=== PATIENT | male | born 1995 | race African-American/Black ===

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

== ENCOUNTER 2017-05-25 16:29 | Emergency (ER) | payer SELFPAY ==
[~2017-05-25] VITALS: Ht 167.6 cm; Wt 99.8 kg
[~2017-05-25 16:29] MED LIST changes: -HYDR-2666 PO; +HYDR-2758 PO; +OXYC-323 PO
[2017-05-25 18:21] LABS: BASO % 1 % (0-3); EOS % 2 % (0-3); HEMATOCRIT 43.2 % (39.0-53.0); HEMOGLOBIN 14.5 g/dL (13.0-17.5); LYMPH # 1.8 x10^3/uL (1.0-4.8); LYMPH % 32 % (24-48); MEAN CORPUSCULAR HEMOGLOBIN 31 pg (25-35); MEAN CORPUSCULAR HGB CONC 34 g/dL (31-37); MEAN CORPUSCULAR VOLUME 91 fL (79-100); MONO % 8 % (0-9); NEUT % 57 % (31-73); PLATELET COUNT 171 x10^3/uL (140-400); RED BLOOD COUNT 4.73 x10^6/uL (4.30-5.70); RED CELL DISTRIBUTION WIDTH 13.4 % (11.5-14.5); WHITE BLOOD COUNT 5.6 x10^3/uL (4.0-11.0)
[2017-05-25 18:35] LABS: BARBITURATES NEG (NEG); BENZODIAZEPINES NEG (NEG); CANNABINOIDS POS (NEG); COCAINE NEG (NEG); METHADONE NEG (NEG); OPIATES NEG (NEG); PHENCYCLIDINE NEG (NEG)
--- NOTE | 2017-05-25 18:59 | ED.ADGEN ---
Past Medical History Past Medical History: STD, Other Additional Past Medical Histor: ADHD Past Surgical History: No Surgical History Alcohol Use: Occasionally Drug Use: None Adult General Chief Complaint Chief Complaint: CHEST WALL PAIN HPI HPI Patient is a 22 year old man, with no significant past medical history, who presents to the emergency department with a complaint of chest pain and lower extremity swelling. Patient states that he experiencing left-sided chest pain today, he states he was not experiencing any any shortness of breath and describes the pain as sharp and stabbing, states that it was occurring for about an hour or so, and he also noted swelling in his lower stomach. He states he doesn't episodes where he "breathe hard", has not previously been evaluated for this issue, and cannot clarify if they becoming worse recently. Did not have an episode of difficulty breathing today. Denies any nausea or vomiting, lightheadedness or dizziness, any focal weakness, numbness, tingling. States the swelling in his extremities C noted over the past few days to weeks, denies any recent travel or surgery, any rashes, any urinary complaints, abdominal pain , any injuries, he states he does have a family history of heart disease in his father, states his father was diagnosed with "a really enlarged heart", and his 20s. He does not have additional history as his father lives in another state. Review of Systems Review of Systems Constitutional: Denies fever or chills. [] Eyes: Denies change in visual acuity. [] HENT: Denies nasal congestion or sore throat. [] Respiratory: Denies cough or shortness of breath. [] Cardiovascular: Left-sided chest pain, with edema in lower extremities. Bilateral. GI: Denies abdominal pain, nausea, vomiting, bloody stools or diarrhea. [] : Denies dysuria. [] Musculoskeletal: Denies back pain or joint pain. [] Integument: Denies rash. [] Neurologic: Denies headache, focal weakness or sensory changes. [] Endocrine: Denies polyuria or polydipsia. [] Lymphatic: Denies swollen glands. [] Psychiatric: Denies depression or anxiety. [] Allergies Allergies Allergies Coded Allergies Type Severity Reaction Last Updated Verified No Known Drug Allergies 11/02/14 No Physical Exam Physical Exam Constitutional: Well developed, well nourished, no acute distress, non-toxic appearance. [] HENT: Normocephalic, atraumatic, bilateral external ears normal, oropharynx moist, no oral exudates, nose normal. [] Eyes: PERRLA, EOMI, conjunctiva normal, no discharge. [] Neck: Normal range of motion, no tenderness, supple, no stridor. [] Cardiovascular:Heart rate regular rhythm, no murmur, S1, S2, no rubs or gallops. No chest or crepitus or tenderness. Unable to reproduce symptoms with palpation.[] Lungs & Thorax: Bilateral breath sounds clear to auscultation, no wheezing, rhonchi, rales. No chest wall crepitus. [] Abdomen: Bowel sounds normal, soft, no tenderness, no masses, no pulsatile masses. [] Skin: Warm, dry, no erythema, no rash. [] Back: No tenderness, no CVA tenderness. [] Extremities: No tenderness, no cyanosis, no clubbing, ROM intact, no edema. Negative Homans sign. [] Neurologic: Alert and oriented X 3, normal motor function, normal sensory function, no focal deficits noted. [] Psychologic: Affect normal, judgement normal, mood normal. [] Current Patient Data Vital Signs Vital Signs Date Time Temp Pulse Resp B/P (MAP) Pulse Ox O2 Delivery O2 Flow Rate FiO2 05/25/17 20:30 74 27 142/83 (102) 98 Room Air 05/25/17 17:20 98.1 98.1 Lab Values Laboratory Tests Test 05/25/17 18:13 05/25/17 18:19 White Blood Count 5.6 x10^3/uL (4.0-11.0) Red Blood Count 4.73 x10^6/uL (4.30-5.70) Hemoglobin 14.5 g/dL (13.0-17.5) Hematocrit 43.2 % (39.0-53.0) Mean Corpuscular Volume 91 fL (79-100) Mean Corpuscular Hemoglobin 31 pg (25-35) Mean Corpuscular Hemoglobin Concent 34 g/dL (31-37) Red Cell Distribution Width 13.4 % (11.5-14.5) Platelet Count 171 x10^3/uL (140-400) Neutrophils (%) (Auto) 57 % (31-73) Lymphocytes (%) (Auto) 32 % (24-48) Monocytes (%) (Auto) 8 % (0-9) Eosinophils (%) (Auto) 2 % (0-3) Basophils (%) (Auto) 1 % (0-3) Neutrophils # (Auto) 3.2 x10^3uL (1.8-7.7) Lymphocytes # (Auto) 1.8 x10^3/uL (1.0-4.8) Monocytes # (Auto) 0.5 x10^3/uL (0.0-1.1) Eosinophils # (Auto) 0.1 x10^3/uL (0.0-0.7) Basophils # (Auto) 0.0 x10^3/uL (0.0-0.2) D-Dimer (Sena) 0.30 ug/mlFEU (0.00-0.50) Sodium Level 142 mmol/L (136-145) Potassium Level 3.6 mmol/L (3.5-5.1) Chloride Level 105 mmol/L (98-107) Carbon Dioxide Level 28 mmol/L (21-32) Anion Gap 9 (6-14) Blood Urea Nitrogen 14 mg/dL (8-26) Creatinine 1.0 mg/dL (0.7-1.3) Estimated GFR (Cockcroft-Gault) 115.3 BUN/Creatinine Ratio 14 (6-20) Glucose Level 105 mg/dL (70-99) H Calcium Level 8.7 mg/dL (8.5-10.1) Total Bilirubin 0.5 mg/dL (0.2-1.0) Aspartate Amino Transferase (AST) 32 U/L (15-37) Alanine Aminotransferase (ALT) 49 U/L (16-63) Alkaline Phosphatase 71 U/L (46-116) Troponin I Quantitative < 0.017 ng/mL (0.000-0.055) CI-Hiv-N-Type Natriuretic Peptide 28 pg/mL (0-124) Total Protein 6.8 g/dL (6.4-8.2) Albumin 3.9 g/dL (3.4-5.0) Albumin/Globulin Ratio 1.3 (1.0-1.7) Lipase 169 U/L (73-393) Urine Opiates Screen Neg (NEG) Urine Methadone Screen Neg (NEG) Urine Barbiturates Neg (NEG) Urine Phencyclidine Screen Neg (NEG) Urine Amphetamine/Methamphetamine Neg (NEG) Urine Benzodiazepines Screen Neg (NEG) Urine Cocaine Screen Neg (NEG) Urine Cannabinoids Screen Pos (NEG) Urine Ethyl Alcohol Neg (NEG) Laboratory Tests 05/25/17 18:13 Laboratory Tests 05/25/17 18:13 EKG EKG EC: Sinus rhythm, heart rate 79 beats/minute, upright axis, QTC of 407, SD 160, QRS of 90, patient with mild ST elevation noted in V2 and V3, with T- wave inversions noted in lead 3, with mild baseline artifact noted, however patient patient's body habitus and age, these could be consistent with normal findings. No evidence of STEMI or other acutely concerning findings. As interpreted by me.[] Radiology/Procedures Radiology/Procedures Chest x-ray: 2 view: Normal cardiopulmonary silhouette, no infiltrates, no effusions, no pneumothorax, no soft tissue or bony abnormalities identified. As interpreted by me. Course & Med Decision Making Course & Med Decision Making Pertinent Labs and Imaging studies reviewed. (See chart for details) Patient well-appearing, is not currently experiencing any chest pain. No concerning personal history. No noticeable swelling of the extremities. However based on patient's complaints, and history of concerning cardiac family disease in young persons, laboratory studies, chest x-ray and ECG obtained. Concerning findings identified, patient noted to have ECG findings which are most consistent with age, not indicative any acutely concerning abnormalities, and as stated patient is asymptomatic in the ED. I do not believe the patient's presentation is consistent with any cardiac or pulmonary abnormalities. Patient observed in the ED for several hours while waiting results, without recurrence of symptoms. Patient is ambulatory without difficulty, states he is rated go home. Patient was noted positive for marijuana. I did discuss his findings with patient, recommend that he establish care with a primary care provider, which patient was agreeable and said "that's what I need". He was given a list of available providers in the area, was also given contact information for Dr. Casillas if he would like additional cardiac evaluation in the future due to his family history, although as stated there was no evidence of concerning findings identified during his evaluation. We did discuss concerning symptoms that would prompt return to the emergency department, patient voiced understanding and agree upon as stated, discharged home in stable condition with plan and precautions as above. Dragon Disclaimer Dragon Disclaimer This electronic medical record was generated, in whole or in part, using a voice recognition dictation system. Departure Impression: Primary Impression: Chest pain Disposition: 01 HOME, SELF-CARE Condition: IMPROVED FAWN AGUIRRE DO May 25, 2017 18:59
[2017-05-25 19:39] LABS: ALBUMIN 3.9 g/dL (3.4-5.0); ALBUMIN/GLOBULIN RATIO 1.3 (1.0-1.7); CALCIUM 8.7 mg/dL (8.5-10.1); GFR 115.3; POTASSIUM 3.6 mmol/L (3.5-5.1); TOTAL BILIRUBIN 0.5 mg/dL (0.2-1.0); TOTAL PROTEIN 6.8 g/dL (6.4-8.2)
[2017-05-25 20:30] VITALS: BP 142/83
--- NOTE | 2017-05-26 07:25 | EKG ---
[facility] [address] [place] [id number] Test Date: 2017-05-25 Test Time: 17:14:51 Pat Name: BLAINE MEJIA Department: Room: Gender: M Scientific Artist: : 1995 Requested By: FAWN AGUIRRE Order Number: [id number] Reading MD: Measurements Intervals [place] Rate: 79 P: 24 CT: 160 QRS: 51 QRSD: 90 T: 11 QT: 354 QTc: 407 Interpretive Statements SINUS RHYTHM QRS(T) CONTOUR ABNORMALITY CONSIDER ANTEROSEPTAL MYOCARDIAL DAMAGE RI6.01 Unconfirmed report No previous ECG available for comparison
--- NOTE | 2017-05-26 07:44 | RAD ---
Chest x-ray Indication: Nontraumatic left-sided chest pain for one day. bilateral lower extremity swelling and intermittent left-sided chest pain. Technique: PA and lateral chest Comparison: None Findings: Heart is normal in size. Lungs are clear. No pneumothorax or pleural effusion. Visualized bony thorax within normal limits. Impression: No acute cardiopulmonary process.
== END 2017-05-25 20:45 | disposition home or self-care (01) ==
LOC: ER 16:29
DX: R07.89 Other chest pain (principal); M79.89 Other specified soft tissue disorders; F90.9 Attention-deficit hyperactivity disorder, unspecified type
CPT/HCPCS: 36415; 71020; 80053; 80307; 83690; 83880; 84484; 85025; 85379; 93005; 99285-25; G0479